=== PATIENT | female | born 1985 | race Caucasian/White ===

== ENCOUNTER 2019-10-08 05:53 | Emergency (ER) | payer OTHER ==
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
[2019-10-08] MEDS ORDERED: methylPREDNISolone 125 MG* 2 ML VIAL IM ONE (06:39)
[2019-10-08] MEDS ORDERED: Bupivacaine 0.5%* 50 ML MDV VIAL INJ ONE (06:40)
[2019-10-08] MEDS ORDERED: Lidocaine 1% INJ* 10 MG/ML 30 ML SDV INJ ONE (06:41)
[2019-10-08] MEDS ORDERED: Bupivacaine 0.5% PF 10 ML SDV VIAL INJ ONE (07:00)
[2019-10-08 07:47] VITALS: BP 108/82
== END 2019-10-08 07:37 | disposition home or self-care (01) ==
LOC: ED 05:53
DX: S46.911A Strain of unspecified muscle, fascia and tendon at shoulder and upper arm level, right arm, initial encounter (principal); V48.5XXA Car driver injured in noncollision transport accident in traffic accident, initial encounter; Y92.410 Unspecified street and highway as the place of occurrence of the external cause; Z88.5 Allergy status to narcotic agent
CPT/HCPCS: 99281; J2930; J3490